=== PATIENT | male | born 1980 | race Caucasian/White ===

== ENCOUNTER 2024-06-10 10:25 | Emergency (ER) | payer MEDICARE, OTHER ==
[2024-06-10 11:23] LABS: #Basophils 0.04 10x3/uL (0.0-0.2); #Eosinophils 0.16 10x3/uL (0.0-0.5); #Monocytes 0.51 10x3/uL (0.0-1.1); #Neutrophils 6.79 10x3/uL (1.5-8.4); %Basophils 0.5 % (0.0-2.0); %Eosinophils 1.9 % (0.0-6.0); %Neutrophils 80.4 % (40.0-75.0); Hematocrit 33.7 % (38.8-50.0); Hemoglobin 11.5 g/dL (13.5-17.5); Mean Corpuscular HGB CONC 34.1 g/dL (32.0-36.0); Mean Corpuscular Hemoglobin 29.1 pg (27.0-33.0); Mean Corpuscular Volume 85.3 fL (81.2-95.1); Mean Platelet Volume 8.3 fL (7.4-10.4); Platelet Count 365 10x3/uL (150-450); RBC Distribution Width 12.5 % (11.5-14.5); Red Blood Cell (RBC) Count 3.95 10x6/uL (4.32-5.72); White Blood Cell (WBC) Count 8.45 10x3/uL (3.5-10.5)
[2024-06-10] MEDS ORDERED: Cefepime 2 GM VIAL ONE (11:32)
[2024-06-10 11:41] LABS: ALT (SGPT) 28 U/L (Less than 45); AST (SGOT) 15 U/L (11-34); Albumin 2.5 g/dL (3.1-4.5); Alkaline Phosphatase 123 U/L (40-110); Anion Gap 19 mmol/L (10-20); BUN (Urea Nitrogen) 48 mg/dL (8.9-20.6); Bilirubin, Total 0.3 mg/dL (0.3-1.2); Calc. Creatinine Clearance 0 mL/min (70-130); Calcium 8.8 mg/dL (7.8-10.44); Carbon Dioxide 20 mmol/L (22-29); Chloride 100 mmol/L (98-107); Estimated GFR 11; Globulin 4.2 g/dL (2.4-3.5); Potassium 3.8 mmol/L (3.5-5.1); Protein, Total 6.7 g/dL (6.0-8.3); Sodium 135 mmol/L (136-145)
[2024-06-10 11:43] LABS: Critical Call Chemistry AT ERS.AM6 READ BACK RESULT AT 1142; Glucose 407 mg/dL (70-105)
[2024-06-10] MEDS ORDERED: VANCOMYCIN 2 GRAM/400 ML BAG 2 GM in Premix 1 BAG IVPB SCH (12:00)
[2024-06-10] MEDS ORDERED: Carvedilol 6.25 MG TAB ONE (12:53)
[2024-06-10] MEDS ORDERED: NIFEdipine XL 30 MG ER.TAB ONE (12:53)
[2024-06-10] MEDS ORDERED: Insulin Regular, Human 100 UNIT/ML 10 ML VIAL ONE (12:57)
[2024-06-10] MEDS ORDERED: Boostrix 0.5 ML (Tdap) VIAL (>/=7 yrs of age) ONE (12:57)
[2024-06-10] MEDS ORDERED: glipiZIDE 10 MG TAB PO SCH (13:30)
[2024-06-10] MEDS ORDERED: hydrALAZINE 20 MG/ML VIAL ONE (15:35)
== END 2024-06-10 19:36 | disposition short-term general hospital (02) ==
LOC: CSHERS 10:25
DX: M86.9 Osteomyelitis, unspecified (principal); I12.9 Hypertensive chronic kidney disease with stage 1 through stage 4 chronic kidney disease, or unspecified chronic kidney disease; N18.9 Chronic kidney disease, unspecified; R73.9 Hyperglycemia, unspecified
CPT/HCPCS: 73630; 80053; 83605; 85025; 86140; 87040; 93005; J0360; J0692; J1815; J3370; 36415; 90715; 96365; 96366; 96367; 96375